=== PATIENT | female | born 1990 | race Caucasian/White ===

== ENCOUNTER 2016-08-06 12:19 | Emergency (ER) | payer SELFPAY ==
[~2016-08-06] VITALS: Ht 154.9 cm; Wt 50.5 kg
[2016-08-06 12:27] VITALS: BP 142/106; PULSE 74; RESP 16; TEMP 97.9; O2SAT 100
[2016-08-06] MEDS ORDERED: PROP10TA6 PO (13:16)
--- NOTE | 2016-08-06 14:07 | PD ---
HPI Chief Complaint: Medication Refill Request Time Seen by Provider: 14:00 Travel History International Travel<30 days: No Contact w/Intl Traveler<30days: No Traveled to known affect area: No History of Present Illness HPI 26-year-old female presents to the emergency department requesting medication refills on Zoloft and Ativan. She has history of depression and anxiety. She last took Zoloft approximately 3 months ago. Took her last pill of Ativan last night. She has history of SVT and takes propanolol; is currently seeing a product coordinator and being worked up for her SVT. She has no emergent medical complaints at this time. She denies fever, chills, nausea, vomiting. Denies chest pain, shortness of breath, abdominal pain, change in stool or urine. Denies suicidal or homicidal ideation. Denies visual or auditory hallucinations. Has a primary care provider in this area and does not have an appointment until September. No known allergies. No other modifying factors or associated signs and symptoms. History Past Medical Histgory Tetanus Vaccination: > 5 Years LMP: 08/04/16 Social History Alcohol Use: No Tobacco Use: Yes Allergies-Medications (Allergen,Severity, Reaction): Coded Allergies: No Known Allergies (Unverified , 08/06/16) Reported Meds & Prescriptions Reported Meds & Active Scripts Active Reported Propranolol (Propranolol HCl) 10 Mg Tab 10 Mg PO Q12HR Review of Systems Except as stated in HPI: all other systems reviewed are Neg Physical Exam Narrative GENERAL: Well-nourished, well-developed female patient, in no acute distress SKIN: Warm and dry. HEAD: Atraumatic. Normocephalic. EYES: Pupils equal and round. No scleral icterus. No injection or drainage. ENT: Mucosa pink and moist. Airway patent. NECK: Trachea midline. CARDIOVASCULAR: Regular rate and rhythm. No murmur appreciated. RESPIRATORY: No accessory muscle use. Breath sounds clear and equal bilaterally. No retractions or tachypnea. GASTROINTESTINAL: Abdomen soft, non-tender, nondistended. Bowel sounds active 4 quadrants. MUSCULOSKELETAL: No obvious deformities. No clubbing. No cyanosis. No edema. NEUROLOGICAL: Awake and alert. Oriented 3. No obvious cranial nerve deficits. Motor grossly within normal limits. Normal speech. PSYCHIATRIC: Appropriate mood and affect; insight and judgment normal. Data Data Last Documented VS Vital Signs Date Time Temp Pulse Resp B/P Pulse Ox O2 Delivery O2 Flow Rate FiO2 08/06/16 12:27 97.9 74 16 142/106 100 MDM Medical Screen Exam Complete: Yes Emergency Medical Condition: No Differential Diagnosis Medication refill, depression, anxiety, medical clearance Narrative Course 26-year-old female requesting medication refill on Zoloft and Ativan. History of SVT and takes propranolol. Currently seeing cardiology. Has primary care in the area but does not have an appointment until September. No emergent medical complaints at this time. Denies chest pain, shortness of breath, abdominal pain, nausea, vomiting, fever, chills. The patient was given information on community resources. Vital signs are stable and the patient is stable for outpatient follow-up and treatment. The pateint has no urgent or emergent medical complaints. There is no emergent or urgent medical need at this time. I instructed the patient to follow up with [facility] primary care provider. A medical screening exam was performed: At the time of evaluation the presenting medical condition was determined not to be of an emergent nature. The patient was given the option of receiving additional care, but declined. Patient was given options for additional community resources from which to obtain care. The Patient Has Been advised to seek medical attention for their presenting complaint. The patient has been advised to return to the ER at any time if an emergent condition develops. Primary Impression: Encounter for medical screening examination Condition: Stable Socorro Phillips Aug 06, 2016 14:07
== END 2016-08-06 14:07 | disposition left against medical advice (07) ==
LOC: PHEFT 12:19
DX: Z76.0 Encounter for issue of repeat prescription (principal); F32.9 Major depressive disorder, single episode, unspecified; I47.1 Supraventricular tachycardia; Z53.21 Procedure and treatment not carried out due to patient leaving prior to being seen by health care provider
CPT/HCPCS: 99281